=== PATIENT | female | born 1980 | race Two or more races ===

== ENCOUNTER 2025-04-25 17:45 | Emergency (ER) | payer BC, SELFPAY ==
[2025-04-25 18:02] VITALS: BP 147/99; PULSE 82; RESP 18; TEMP 36.5; O2SAT 96; BMI 48.0
--- NOTE | 2025-04-25 18:11 | EKG_ITS ---
[facility] Test Date: 2025-04-25 Pat Name: DELFINO PEREIRA Department: Room: - Gender: Female [place] [employer]: : 1980 Requested By: Micah Lynn Order Number: [id number] Reading MD: Micah Lynn Measurements Intervals [place] Rate: 85 P: 48 ME: 160 QRS: 37 QRSD: 77 T: 35 QT: 322 QTc: 384 Interpretive Statements SINUS RHYTHM No previous ECG available for comparison /store/S0/[id number].pdf
[2025-04-25] MEDS: KETOROLAC INJ 30 MG/ML VIAL IM (19:56)
[2025-04-25 20:21] LABS: Basophils # (Auto) 0.1 Thou/mm3 (0.0-0.2); Basophils % (Auto) 1 % (0-2.5); Eosinophils # (Auto) 0.2 Thou/mm3 (0.0-0.5); Eosinophils % (Auto) 2 % (0-10); Hematocrit 42.2 % (36.0-46.0); Hemoglobin 13.9 g/dL (12.0-16.0); Immature Granulocytes Auto 0.04 Thou/mm3 (0.00-0.00); Lymphocytes # (Auto) 2.3 Thou/mm3 (1.0-4.8); Lymphocytes % (Auto) 24 % (10-50); Mean Corpuscular HGB Conc 32.9 g/dl (31.0-37.0); Mean Corpuscular Hemoglobin 27.5 pg (25.0-35.0); Mean Corpuscular Volume 83 fL (80-100); Monocytes # (Auto) 1.0 Thou/mm3 (0.0-0.8); Monocytes % (Auto) 10 % (0-12); Neutrophils # (Auto) 6.2 Thou/mm3 (1.8-7.7); Neutrophils % (Auto) 63 % (37-80); Nucleated Red Blood Cell # 0.00 Thou/mm3 (0.00-0.00); Nucleated Red Blood Cell % 0 /100 WBC (0); Platelet Count 378 Thou/mm3 (140-440); RDW Standard Deviation 41.2 fL (36.4-46.3); Red Blood Count 5.06 Miln/mm3 (4.00-5.20); White Blood Count 9.8 Thou/mm3 (3.6-11.0)
[2025-04-25 20:34] LABS: B-Type Natriuretic Peptide < 20 pg/mL (0-100)
[2025-04-25 20:37] LABS: Alanine Aminotransferase 24 U/L (10-49); Albumin, Serum 4.4 gm/dL (3.5-5.0); Albumin/Globulin Ratio 1.1 (1.2-2.2); Alkaline Phosphatase 91 U/L (46-116); Anion Gap 7 (7-16); Aspartate Amino Transferase 25 U/L (0-34); BUN/Creatinine Ratio 10 Ratio (12-20); Bilirubin,Total 0.4 mg/dL (0.3-1.2); Blood Urea Nitrogen 9 mg/dL (9-23); Calcium 10.7 mg/dL (8.3-10.6); Calcium (Corrected) 10.7 mg/dL (8.5-10.1); Carbon Dioxide 30.1 mMol/L (20.0-31.0); Chloride 101 mMol/L (98-107); Creatinine (Component) 0.9 mg/dL (0.6-1.3); Estimated Creatinine Clearance 103.1 mL/min (>60); Globulin 3.9 gm/dL (2.3-3.5); Glucose 91 mg/dL (74-106); Osmolality,Calculated 274 (275-295); Potassium 4.3 mMol/L (3.4-5.1); Sodium 138 mMol/L (136-145); Total Protein 8.3 gm/dL (5.7-8.2); Troponin I < 0.002 ng/mL (0.0-0.045); eGFR > 60 See Note
--- NOTE | 2025-04-25 20:53 | EDNOTE_ITS ---
ED General RME/HPI General Chief complaint: General Adult/Misc Complain Stated complaint: SENT BY PCP FOR ABNORMAL EKG Time Seen by Provider: 04/25/25 18:54 Source: patient Arrival date/time: 04/25/25 17:45 Mode of arrival: ambulatory Limitations: no limitations RME / HPI RME / HPI narrative: This patient is a pleasant but severely morbidly obese 44-year-old female who arrives to the ED today for evaluation of chest pain concerns. Patient states that she went to an urgent care for evaluation and after an EKG, they told her to come to the ED for concerns related to a concerning EKG. Patient complains of stabbing pain that is midsternal and nonradiating. Patient denies any traumatic events. Patient has any history of cardiac or pulmonary concerns. Patient was mildly hypertensive at arrival. Related Data Previous Rx's ?Medication ?Instructions ?Recorded cyclobenzaprine 10 mg tablet 10 mg PO TID PRN muscle s pasm #30 06/23/19 tabs hydrocodone 5 mg-acetaminophen 325 1 tab PO BID PRN pa in #10 tabs 06/23/19 mg tablet ([place]) ibuprofen 800 mg tablet (IBU) 800 mg PO Q8H PRN pain # 14 tabs 04/25/25 Allergies Allergy/AdvReac Type Severity Reaction Status Date / Time bee venom protein (honey bee) Allergy Severe SWELLING Verified 04/25/25 19:55 onion Allergy Severe HIVES AND Verified 04/25/25 19:55 SWELLING Review of Systems Review of Systems Systems Reviewed: All systems reviewed, normal except as documented Past Medical History Past Medical History CARDIAC: Negative Congestive Heart Failure RESPIRATORY: Negative Chronic Obstructive Pulmonary Disease (COPD) GENITOURINARY: Negative Renal Disease ENDOCRINE: Negative Diabetes Mellitus Type 1 or Diabetes Mellitus Type 2 Surgical History SURGICAL: Positive Tonsillectomy, Adenoidectomy and Section Social History SMOKING STATUS: Current every day smoker ED Exam General Limitations: Present no limitations General appearance: Present alert and in distress (Mild distress due to central chest pain concerns.) Head Head exam: Present atraumatic Eye Eye exam: Present normal appearance, PERRL and EOMI ENT ENT exam: Present normal exam, normal oropharynx and mucous membranes moist Neck Neck exam: Present normal inspection, full ROM and trachea midline Chest Chest inspection: Present normal inspection, symmetric chest wall rise and tenderness (Pinpoint tenderness to palpation noted at the mid and central sternum. No signs of trauma.) Respiratory Respiratory exam: Present normal lung sounds bilaterally Cardiovascular Cardiovascular exam: Present regular rate, normal rhythm and normal heart sounds Abdominal Exam Abdominal exam: Present soft and normal bowel sounds Extremities Exam Extremities exam: Present normal inspection and full ROM Back Exam Back exam: Present normal inspection and full ROM Neurological Exam Neurological exam: Present alert, oriented X3 and CN II-XII intact Psychiatric Psychiatric exam: Present normal affect and normal mood Skin Skin exam: Present warm, dry, intact and normal color Course Quality Measures none Orders Category Date Time Status EKG (ED ONLY) *Do not use* NOW Care 04/25/25 18:11 Completed EKG (ED Only) Stat Exams 04/25/25 18:11 Draft BNP [B-Type Natriuretic Peptide] Stat Lab 04/25/25 19:54 Completed CBC Stat Lab 04/25/25 19:54 Completed CMP [Comprehensive Metabolic Panel] Stat Lab 04/25/25 19:54 Completed Troponin I Stat Lab 04/25/25 19:54 Completed Ketorolac Inj [Toradol Inj] Med 04/25/25 19:04 Discontinued 30 mg IM X1 ONE As noted above Vital Signs Vital signs: Vital Signs Temperature 97.7 F 04/25/25 18:02 Pulse Rate 82 04/25/25 18:02 Respiratory Rate 18 04/25/25 18:02 Blood Pressure 147/99 H 04/25/25 18:02 Pulse Oximetry (%) 96 04/25/25 18:02 Oxygen Delivery Method Room Air 04/25/25 18:02 As noted above Discharge Plan Plan Patient Disposition: HOME (Self Care) Prescriptions/Referrals Prescriptions/Med Rec: New ibuprofen [IBU] 800 mg tablet 800 mg PO Q8H PRN (Reason: pain) Qty: 14 0RF No Action cyclobenzaprine 10 mg tablet 10 mg PO TID PRN (Reason: muscle spasm) Qty: 30 0RF hydrocodone-acetaminophen [[place]] 5-325 mg tablet 1 tab PO BID MDD 10mg PRN (Reason: pain) Qty: 10 0RF Referrals: Davion Sheets MD [Primary Care Provider, Family Practice] - In 1 week Problem List Clinical Impression: Acute costochondritis Patient/Caregiver Discharge Instructions Education Materials: Costochondritis Additional Instructions: Advised ibuprofen as needed for symptomatic relief. Print Language: British Stand Alone Forms: [employer] Award Info., Patient Portal Info Letter MDM Narrative MDM hospital course (for use when minimal MDM required): All studies performed the ED were evaluated by me personally. Serum studies and urinalysis is unremarkable for any systemic concerns including unremarkable cardiac markers. EKG revealed a sinus rhythm with a rate of 85. FL interval 160 and QT interval 322. Unremarkable EKG. Based on the patient presentation, I believe she is suffering from a costochondritis event. Patient admitted relief of symptoms status post medication dispensed. Advised patient utilize medication as needed for symptomatic relief. Clinical Information Provided by: patient Medical Records reviewed [facility] Meds/Rx considered, not ordered None Labs/Rad/Tests considered, not ordered None Chronic Illness/Social Conditions which may negatively complicate care or outcome(s)-explain: None or not applicable EKG EKG not done EKG Interpretation EKG #1: EKG Interpretation: Unremarkable EKG. Labs Labs: interpreted by me Lab(s) Interpretation(s): All serum and urine studies. Imaging Imaging interpretation: none Medication Administration(s) Medication Administration History Discontinued Medications Ketorolac Tromethamine (Ketorolac Inj 30 Mg/Ml Vial) 30 mg IM X1 ONE Stop: 04/25/25 19:05 Last Admin: 04/25/25 19:56 Dose: 30 mg Documented By: BD As noted above Diagnosis Differential Diagnosis ED Complaint MDM: Costochondritis, acute [place], chest pain
[2025-04-25 22:26] VITALS: RESP 16
== END 2025-04-25 22:26 | disposition home or self-care (01) ==
PROVIDERS: Physician Assistant; Emergency Provider Emergency Medicine; PCP Family Medicine
DX: M94.0 Chondrocostal junction syndrome [Tietze] (principal)
CPT/HCPCS: 36415; 80053; 83880; 84484; 85025; 93005; 96372; 99283; J1885